=== PATIENT | male | born 1960 | race Caucasian/White ===

== ENCOUNTER 2017-01-07 06:58 | Day surgery (SDC) | payer MEDICARE, OTHER ==
[~2017-01-07] VITALS: Ht 170.2 cm; Wt 79.6 kg
[2017-01-07] VITALS (25 sets, daily range): BP systolic 70–140; BP diastolic 38–73; PULSE 60–84; RESP 11–24; Ht 170.2 cm; Wt 79.6 kg
[~2017-01-07 06:58] MED LIST: ATOR20TA38 PO; BUPIVACAINE 0.25% (MPF) 30 ML INJ ONE; CEFAZOLIN 2 GM/50 ML (PMX) 50 ML IVPB ONE; CHOL100062 PO; CLON2TAB3 PO; ESCI20TA38 PO; FESO4TAB PO; POLYMYXIN/BACITRACIN 1L IRRIG ONE; QUET400T PO; SOD CHLORIDE 0.9% 1,000 ML IV ONE
[2017-01-07] MEDS ORDERED: LIDOCAINE 2% (SDV) 5 ML INJ ONE (07:38)
[2017-01-07] MEDS ORDERED: PROPOFOL 20 ML ONE (07:38)
[2017-01-07] MEDS ORDERED: SUCCINYLCHOLINE CHLORIDE 100 MG/5 ML SYG IV ONE (07:38)
[2017-01-07] MEDS ORDERED: MIDAZOLAM 1 MG/ML 2 ML INJ ONE (07:38)
[2017-01-07] MEDS ORDERED: CEFAZOLIN 1 GM INJ ONE (07:38)
[2017-01-07] MEDS ORDERED: ROCURONIUM 50 MG INJ ONE (07:38)
[2017-01-07] MEDS ORDERED: FENTAnyl 50 MCG/ML VIAL ONE ×2 (07:39→08:31)
[2017-01-07] MEDS ORDERED: ONDANSETRON 4 MG INJ ONE (07:54)
[2017-01-07] MEDS ORDERED: DEXAMETHASONE 4 MG/ML 1 ML INJ ONE (07:54)
[2017-01-07] MEDS ORDERED: METOCLOPRAMIDE 10 MG INJ ONE (07:54)
[2017-01-07] MEDS ORDERED: ACETAMINOPHEN 1000MG/100ML IV 100 ML ONE (07:58)
[2017-01-07] MEDS ORDERED: KETOROLAC 30 MG INJ ONE (07:58)
[2017-01-07] MEDS ORDERED: EPHEDrine SULFATE 50 MG/5 ML SYG ONE ×2 (07:59→09:57)
[2017-01-07] MEDS ORDERED: CLON-379 PO (08:14)
[2017-01-07] MEDS ORDERED: LISI20TA11 PO (08:14)
[2017-01-07] MEDS ORDERED: ASPI-535 PO (08:14)
[2017-01-07] MEDS ORDERED: METO200T4 PO (08:14)
[2017-01-07] MEDS ORDERED: GLYCOPYRROLATE 0.4 MG INJ ONE (08:19)
[2017-01-07] MEDS ORDERED: NEOSTIGMINE 3 MG/3 ML SYRINGE ONE (08:19)
--- NOTE | 2017-01-07 08:29 | OPR ---
Date/Time of Note Date/Time of Note DATE: 01/07/17 TIME: 08:29 Operative Report Procedure Date: January 07, 2017 Preoperative Diagnosis incarcerated ventral hernia Postoperative Diagnosis same Operation Performed lap incarcerated ventral hernia repair implantation of mesh Surgeon: Jeremi GUILLERMO Anesthesia: general Jeremi GUILLERMO January 07, 2017 08:29
[2017-01-07] MEDS ORDERED: PROCHLORPERAZINE 10 MG INJ IV PRN (08:30)
[2017-01-07] MEDS ORDERED: DIPHENHYDRAMINE 50 MG INJ IV PRN (08:30)
[2017-01-07] MEDS ORDERED: ONDANSETRON 4 MG INJ IV PRN (08:30)
[2017-01-07] MEDS ORDERED: MEPERIDINE 25 MG INJ IV PRN (08:30)
[2017-01-07] MEDS ORDERED: hydrALAzine 20 MG INJ IV PRN (08:30)
[2017-01-07] MEDS ORDERED: FENTAnyl 50 MCG/ML VIAL IV PRN (08:30)
[2017-01-07] MEDS ORDERED: HYDROmorphONE (0.2 MG/ML) 10ML SYG IV PRN (08:30)
[2017-01-07] MEDS ORDERED: HYDROCODONE/APAP (5/325) TAB PO ONE (08:30)
[2017-01-07] MEDS ORDERED: LABETALOL HCL 20MG INJ IV PRN (08:30)
--- NOTE | 2017-01-07 09:07 | OPR ---
DATE OF OPERATION: 01/07/2017 INDICATIONS: This is a 57-year-old male with an incarcerated ventral hernia. He requests surgical repair. The risks, alternatives, benefits, and personnel were discussed with the patient. The patient expressed understanding and consented to the operation. PREOPERATIVE DIAGNOSIS: Incarcerated ventral hernia. POSTOPERATIVE DIAGNOSIS: Incarcerated ventral hernia. OPERATION PERFORMED: 1. Laparoscopic incarcerated ventral hernia repair. cpt [address] 2. Placement of Ventralight ST 15 x 20-cm mesh. cpt 24781 SURGEON: Janeen Stevens MD SPECIMEN: None. COMPLICATIONS: None. ANESTHESIA: General. PROCEDURE: The patient was taken to the OR and prepped and draped in the usual sterile fashion. A surgical timeout was performed. IV antibiotics were given. Left upper quadrant 5-mm transverse incision was made with a 15 blade. Using a 5-mm optical trocar, optical entry was performed. Pneumoperitoneum was established. A left flank 12-mm optical trocar and left lower quadrant 5-mm optical trocars were placed under direct visualization. Upon initial inspection there was some incarcerated contents in the ventral hernia. This was reduced laparoscopically using Harmonic liane. A small hernia defect was identified. This was covered with underlay mesh with approximately 5 cm of coverage in all directions with Ventralight ST 15 x 20-cm mesh. This was secured with a SecureStrap. There was good hemostasis. Ports were removed under direct visualization. The skin was closed using skin louise. Local anesthesia was injected and dressings were applied. Dictated By: JANEEN MULLINS/CINTIA Conf#: [id number] DID#: [id number]
[2017-01-07] MEDS ORDERED: oxyCODONE 5 MG TAB PO PRN (09:30)
[2017-01-07] MEDS ORDERED: EPHEDrine SULFATE 50 MG/5 ML SYG IV PRN (10:30)
== END 2017-01-07 11:48 | disposition home or self-care (01) ==
LOC: SDS 06:58
PROVIDERS: ATTEND Surgery
DX: K43.6 Other and unspecified ventral hernia with obstruction, without gangrene (principal); I10 Essential (primary) hypertension; E78.5 Hyperlipidemia, unspecified; E66.9 Obesity, unspecified; Z68.27 Body mass index [BMI] 27.0-27.9, adult
CPT/HCPCS: 49653; C1781; J0131; J0690; J1100; J1885; J2250; J2405; J2710; J2765; J3010; J7999